=== PATIENT | female | born 1975 | race Caucasian/White ===

== ENCOUNTER 2017-01-31 13:18 | Outpatient (CLI) | payer OTHER | END 2017-01-31 13:19 | disposition home or self-care (01) | DX: M79.671 Pain in right foot (principal) ==

== ENCOUNTER 2018-09-01 13:28 | Emergency (ER) | payer OTHER ==
[2018-09-01 13:35] VITALS: BP 158/77
[2018-09-01] MEDS ORDERED: PROPARACAINE 0.5% OPHTH DROPS 15 ML RIGHTEYE STA (14:00)
[2018-09-01] MEDS ORDERED: ERYTHROMYCIN OPHTH OINT 1 GM TUBE RIGHTEYE STA (14:23)
--- NOTE | 2018-09-01 14:27 | ED Physician Documentation ---
History of Present Illness - Stated complaint Stated Complaint: RT EYE REDNESS/PAIN - Chief complaint Chief Complaint: Heent - Additonal information Additional information: hx from pt 42 y/o f no contacts (had LASIK) her mom is sick and she has been crying and rubbing her eyes pain and redness to right eye Review of Systems Eyes: reports: Irritation PD PAST MEDICAL HISTORY - Past Medical History Past Medical History: No - Past Surgical History Past Surgical History: No - Present Medications Home Medications: Ambulatory Orders Medication Instructions Recorded Confirmed Alprazolam [Xanax] 0.25 mg PO DAILY PRN 09/01/18 09/01/18 Erythromycin Base [Erythromycin 1 applic OP Q4H #1 tube 09/01/18 Ophthalmic Ointment] Sertraline [Zoloft] 25 mg PO DAILY 09/01/18 09/01/18 buPROPion [Wellbutrin Sr] 100 mg PO BID 09/01/18 09/01/18 busPIRone [Buspar] 5 mg PO BID 09/01/18 09/01/18 hydrOXYzine PAMOATE [Vistaril] 25 mg PO ONCE 09/01/18 09/01/18 traZODone [Desyrel] 50 mg PO ONCE 09/01/18 09/01/18 - Allergies Allergies/Adverse Reactions: Allergies Allergy/AdvReac Type Severity Reaction Status Date / Time cephalexin Allergy Rash Verified 09/01/18 13:35 - Social History Does the pt smoke?: No Smoking Status: Never smoker Does the pt drink ETOH?: No Substance Use and Type: Marijuana PD ED PE NORMAL - Vitals Vital signs reviewed: Yes - HEENT HEENT: PERRL, Other (R eye injetced, pupil 4 and eactive, no dc, no FB ebe with lid eversion, large corneal abrasion and 5 oclock, johnnie pen not working but globe soft and pain relieved with proparacaine, ) Results - Vitals Vitals: Vital Signs - 24 hr 09/01/18 13:32 Temperature 36.5 C Heart Rate 97 Respiratory 18 Rate Blood Pressure 158/77 H O2 Saturation 96 Oxygen O2 Source Room air Departure - Departure Disposition: 01 Home, Self Care Clinical Impression: Corneal abrasion Qualifiers: Encounter type: initial encounter Laterality: right Qualified Code(s): S05.01XA - Injury of conjunctiva and corneal abrasion without foreign body, right eye, initial encounter Condition: Good Instructions: ED Eye Injury Corneal Abrasion Prescriptions: Erythromycin Base [Erythromycin Ophthalmic Ointment] 1 applic OP Q4H #1 tube Comments: Tylenol or motrin as needed for pain. Cool compresses will help Use the antibiotic ointment every 4 hr while awake for a week. Follow up with the eye doctor as planned
== END 2018-09-01 14:38 | disposition home or self-care (01) ==
LOC: ED 13:28
DX: S05.01XA Injury of conjunctiva and corneal abrasion without foreign body, right eye, initial encounter (principal)
CPT/HCPCS: 99281; 99283; J3490

== ENCOUNTER 2020-03-09 11:23 | Outpatient (CLI) | payer OTHER ==
--- NOTE | 2020-03-10 08:52 | Mammography Report ---
BILATERAL DIGITAL SCREENING MAMMOGRAM 3D/2D: 03/09/2020 CLINICAL: Routine screening. Comparison is made to exam dated: 07/27/2018 mammogram - [facility]. There are sc attered fibroglandular elements in both breasts. No significant masses, calcifications, or other findings are seen in either breast. There has been no significant interval change. IMPRESSION: NEGATIVE There is no mammographic evidence of malignancy. A 1 year screening mammogram is recommended. This exam was interpreted at Station ID: [id number]. NOTE: For mammograms, a report in lay terms will be sent to the patient. Approximately 15% of breast malignancies will not be visualized mammographically. In the management of a palpable breast mass, a negative mammogram must not discourage biopsy of a clinically suspicious lesion. Electronically Signed By: Isaias Leon M.D. aty/:03/09/2020 13:10:59 ACR BI-RADS Category 1: Negative 3341F PARENCHYMAL PATTERN: (A) - The breast(s) demonstrate(s) scattered fibroglandular densities. BI-RADS CATEGORY: (1) - 1 RECOMMENDATION: (ANNUAL) - Recommend routine annual screening mammography. [id number] 1 year screening LATERALITY: (B)
== END 2020-03-09 11:24 | disposition home or self-care (01) ==
LOC: DI 11:23
PROVIDERS: ATTEND Nurse Practitioner Family
DX: Z12.31 Encounter for screening mammogram for malignant neoplasm of breast (principal)
CPT/HCPCS: 77063; 77067

== ENCOUNTER 2020-09-19 13:39 | Outpatient (CLI) | payer OTHER | END 2020-09-19 13:40 | disposition left against medical advice (07) | LOC: EMS 13:39 | PROVIDERS: ATTEND Surgery | DX: S69.91XA Unspecified injury of right wrist, hand and finger(s), initial encounter (principal); S70.12XA Contusion of left thigh, initial encounter; V53.5XXA Driver of pick-up truck or van injured in collision with car, pick-up truck or van in traffic accident, initial encounter; W22.11XA Striking against or struck by driver side automobile airbag, initial encounter; Y93.89 Activity, other specified; Y92.413 State road as the place of occurrence of the external cause ==

== ENCOUNTER 2021-04-16 09:52 | Outpatient (CLI) | payer OTHER ==
--- NOTE | 2021-04-17 13:45 | Mammography Report ---
BILATERAL DIGITAL SCREENING MAMMOGRAM 3D/2D: 04/16/2021 CLINICAL: Family history of breast cancer. Comparison is made to exams dated: 03/09/2020 mammogram - [facility], 01/25/2019 [facility], 07/29/2018 mammogram - [facility], and 07/27/2018 mammogram - [facility]. There are scattered fibroglandular elements in both breasts. There are benign calcifications in both breasts. No significant masses, calcifications, or other findings are seen in either breast. There has been no significant interval change. IMPRESSION: BENIGN There is no mammographic evidence of malignancy. A 1 year screening mammogram is recommended. This exam was interpreted at Station ID: [id number]. NOTE: For mammograms, a report in lay terms will be sent to the patient. Approximately 15% of breast malignancies will not be visualized mammographically. In the management of a palpable breast mass, a negative mammogram must not discourage biopsy of a clinically suspicious lesion. Electronically Signed By: Jose godoy/penrad:04/16/2021 12:26:05 ACR BI-RADS Category 2: Benign Finding(s) 3342F PARENCHYMAL PATTERN: (A) - The breast(s) demonstrate(s) scattered fibroglandular densities. BI-RADS CATEGORY: (2) - 2 RECOMMENDATION: (ANNUAL) - Recommend routine annual screening mammography. [id number] 1 year screening LATERALITY: (B)
== END 2021-04-16 09:53 | disposition home or self-care (01) ==
LOC: DI.S 09:52
PROVIDERS: ATTEND Nurse Practitioner Family
DX: Z12.31 Encounter for screening mammogram for malignant neoplasm of breast (principal); Z80.3 Family history of malignant neoplasm of breast

== ENCOUNTER 2022-01-29 11:06 | Outpatient (CLI) | payer OTHER ==
--- NOTE | 2022-01-29 13:28 | XRAY Report ---
PROCEDURE: Hand 3 View BILAT INDICATIONS: HAND PAIN, BILATERAL TECHNIQUE: 3 views of the right and left hand(s) acquired. COMPARISON: None. FINDINGS: Bones: No acute fractures or dislocations. Old fracture involving the dorsal aspect of the left seco nd distal phalangeal base. No suspicious bony lesions. Mild osteoarthritic changes bilaterally. No p eriarticular osteopenia or bony erosions. Soft tissues: No suspicious soft tissue calcifications. IMPRESSION: 1. Mild osteoarthritis bilaterally. 2. Old fracture of the left second distal phalangeal base. Reviewed by: Erika Pablo MD on 01/29/2022 1:27 PM PDT Approved by: Erika Pablo MD on 01/29/2022 1:27 PM PDT Station ID: [id number]
== END 2022-01-29 11:07 | disposition home or self-care (01) ==
LOC: DI.S 11:06
PROVIDERS: ATTEND Nurse Practitioner Family
DX: M19.042 Primary osteoarthritis, left hand (principal); M19.041 Primary osteoarthritis, right hand; S62.631D Displaced fracture of distal phalanx of left index finger, subsequent encounter for fracture with routine healing

== ENCOUNTER 2023-06-10 09:46 | Outpatient (CLI) | payer OTHER ==
--- NOTE | 2023-06-11 11:32 | Mammography Report ---
BILATERAL DIGITAL SCREENING MAMMOGRAM 3D/2D: 06/10/2023 CLINICAL: Routine screening. Family history of breast cancer. Comparison is made to exams dated: 05/07/2022 mammogram, 04/16/2021 mammogram, 03/09/2020 mammogram - [facility], and 01/25/2019 mammogram - [facility]. There are scattered areas of fibroglandular density in both breasts (category b / 25%-50% glandular t issue). No significant masses, calcifications, or other findings are seen in either breast. IMPRESSION: NEGATIVE There is no mammographic evidence of malignancy. A 1 year screening mammogram is recommended. Based on the Tyrer Cuzick model (a risk assessment model) the patients lifetime risk is 15.0% and he r 10 year risk is 2.8%. According to the ACR, ACS, and NCCN guidelines, an annual breast MRI exam pepe ng with mammogram is recommended if the patients lifetime risk is 20% or greater. This exam was interpreted at Station ID: [id number]. NOTE: For mammograms, a report in lay terms will be sent to the patient. Approximately 15% of breast malignancies will not be visualized mammographically. In the management of a palpable breast mass, a negative mammogram must not discourage biopsy of a clinically suspicious lesion. Electronically Signed By: Michelle Ball M.D. esb/:06/10/2023 15:49:29 letter sent: No_Letter ACR BI-RADS Category 1: Negative 3341F PARENCHYMAL PATTERN: (A) - The breast(s) demonstrate(s) scattered fibroglandular densities. BI-RADS CATEGORY: (1) - 1 Mammogram [id number] 1 year screening LATERALITY: (B)
== END 2023-06-10 09:47 | disposition home or self-care (01) ==
LOC: DI.S 09:46
PROVIDERS: ATTEND Nurse Practitioner Family
DX: Z12.31 Encounter for screening mammogram for malignant neoplasm of breast (principal); Z80.3 Family history of malignant neoplasm of breast